=== PATIENT | female | born 2000 | race Caucasian/White ===

== ENCOUNTER → 2018-05-06 15:44 | Outpatient (CLI) | payer OTHER, SELFPAY ==
[2018-05-06 16:23] LABS: Basophils % 0.3 % (0.1-2.0); Eosinophils % 0.4 % (0.1-12.0); Hematocrit 42.8 % (37.0-47.0); Hemoglobin 14.4 g/dL (12.2-16.2); Lymphocytes # 1.3 K/mm3 (0.7-4.5); Lymphocytes % 15.1 K/mm3 (10-50); Mean Corpuscular HGB Conc 33.7 g/dL (31.8-35.4); Mean Corpuscular Hemoglobin 30.7 pg (27.0-31.2); Mean Corpuscular Volume 90.9 fl (81-99); Mean Platelet Volume 7.4 fl (7.4-10.4); Monocytes # 0.3 K/mm3 (0.1-1.0); Monocytes % 3.9 % (1.7-9.3); Neutrophils # 6.8 K/mm3 (1.8-7.8); Neutrophils % 80.3 % (37.0-80.0); Platelet Count 275 K/mm3 (142-424); Red Blood Count 4.71 M/mm3 (4.20-5.40); Red Cell Distribution Width 12.8 % (11.5-17.5); White Blood Count 8.4 K/mm3 (4.5-13.0)
[2018-05-08 16:52] LABS: HIV Screen 4th Generation wRfx Non Reactive (Non Reactive); Rapid Plasma Reagin Ab Titer Non Reactive (NonRea<1:1)
[2018-05-08 16:53] LABS: Hepatitis B Surface Antigen Negative (Negative); Hepatitis C Antibody <0.1 s/co ratio (0.0-0.9); Rubella Antibodies, IgG 1.59 index (Immune >0.99)
[2018-05-09 08:35] LABS: Neisseria gonorrhoeae, NAA Negative (Negative)
== END ==
PROVIDERS: Family Provider Family Medicine; PCP Nurse Practitioner Pediatrics; Visit Provider Nurse Practitioner Obstetrics & Gynecology
DX: Z34.90 Encounter for supervision of normal pregnancy, unspecified, unspecified trimester (principal)
CPT/HCPCS: 36415; 85025; 86592; 86703; 86762; 86850; 87340; 87380; 87491; 87591; G0432

== ENCOUNTER → 2018-06-25 15:06 | Outpatient (CLI) | payer OTHER, SELFPAY ==
[2018-06-29 01:07] LABS: AFP Value 70.9 ng/mL (.); DIA MoM 0.89 (.); DIA Value 191.43 pg/mL (.); DSR (Second Trimester) 1 IN 10000 (.); Gest. Age on Collection Date 16.4 WEEKS (.); Maternal Age At EDD 20.2 yr (.); OSBR Risk 1 IN 2270 (.); Results Report (.); hCG MoM 1.08 (.); uE3 MoM 1.33 (.); uE3 Value 1.28 ng/mL (.)
[2018-07-01 11:13] LABS: Gestat. Age Based On EDD (.)
== END ==
PROVIDERS: Visit Provider Nurse Practitioner Obstetrics & Gynecology
DX: Z34.90 Encounter for supervision of normal pregnancy, unspecified, unspecified trimester (principal)
CPT/HCPCS: 36415; 82106

== ENCOUNTER → 2018-08-02 12:46 | Outpatient (CLI) | payer OTHER, SELFPAY ==
--- NOTE | 2018-08-02 12:47 | US_ITS ---
US OB /maternal detail: INDICATION: ITS.REASON: US OB Complete ORDERING PHYSICIAN: Chris Blanc MD PATIENT AGE: 17 years TECHNIQUE: ultrasound transabdominal scanning. COMPARISON: No previous relevant studies. FINDINGS: Single viable intrauterine gestation. Cephalic position. Placenta: Anterior placenta grade 1. There is average amount fluid. The cervix appears satisfactory. Closed and measuring 2.9 cm in length. Complete survey performed and was unremarkable on the submitted images as in PACS. No discrete anomalies identified on survey imaging by technologist. Active fetus. Three-vessel cord with satisfactory umbilical cord insertion. 4- chamber heart noted. Survey of brain & ventricles unremarkable. Face and neck survey unremarkable. Diaphragm and chest views unremarkable. Abdomen: Both kidneys noted and unremarkable. Stomach noted and satisfactory. Spine: Survey of the spine satisfactory with no anomalies identified nor imaged. Both arms and legs noted. Amniotic Fluid: Adequate. Maternal adnexa: No significant findings. Measurements: Average ultrasound age 21w6d. Gestational Age 21w6d. Estimated due date by ultrasound age 0412/07/2018. Estimated weight 445 grams. BPD = 21w6d OFD = 22w3d HC = 21w4d AC = 21w6d FL = 21w5d Growth Percentile= 36% Heart Rate = 152 Cerebellum = 22w2d Humerus = 23w0d HC/AC is 1.14 (1.06-1.25). CI is 75% (70-86%). FL/BPD is 71%. FL/AC is 22% (20-24%). IMPRESSION: There is a single live fetus present which is in cephalic presentation with an average ultrasound age of 21 weeks and 6 days. heart and body motion noted. All parameters correlate. No obvious anomalies. Placenta is anterior and grade 1. Please see above for detailed description
== END ==
PROVIDERS: PCP Nurse Practitioner Pediatrics; Visit Provider Nurse Practitioner Obstetrics & Gynecology
DX: Z36.0 Encounter for antenatal screening for chromosomal anomalies (principal)
CPT/HCPCS: 76811

== ENCOUNTER 2018-08-09 03:31 | Observation (INO) ==
[2018-08-09 03:45] LABS: Basophils % 0.3 % (0.1-2.0); Eosinophils # 0.1 K/mm3 (0.0-0.4); Hematocrit 36.5 % (37.0-47.0); Hemoglobin 12.3 g/dL (12.2-16.2); Lymphocytes # 2.2 K/mm3 (0.7-4.5); Mean Corpuscular HGB Conc 33.7 g/dL (31.8-35.4); Mean Corpuscular Hemoglobin 31.4 pg (27.0-31.2); Mean Corpuscular Volume 93.3 fl (81-99); Mean Platelet Volume 8.1 fl (7.4-10.4); Monocytes # 0.4 K/mm3 (0.1-1.0); Monocytes % 5.1 % (1.7-9.3); Neutrophils # 5.2 K/mm3 (1.8-7.8); Neutrophils % 65.7 % (37.0-80.0); Platelet Count 231 K/mm3 (142-424); Red Blood Count 3.91 M/mm3 (4.20-5.40); White Blood Count 7.8 K/mm3 (4.5-13.0)
--- NOTE | 2018-08-09 03:50 | Emergency Department Note ---
ED Disposition Clinical Impression: Atypical chest pain, Dyspnea, , Elevated d-dimer Disposition: Admitted as Observation Condition on Discharge: Good - Critical Care Critical Care Time: No Attestation: On , the high probability of a clinically significant, sudden or life threatening deterioration of the following system(s) required my full and direct attention, intervention and personal management. The time I documented below is in addition to time spent performing reported procedures but includes the following listed in this critical care notation. Medical Decision Making - S[place]er[place] Inquiry Pt receiving controlled substance: No Vital Signs: 08/09/18 03:31 Temperature 98.6 F Temperature Source Oral Pulse Rate [Right] 110 H Respiratory Rate 20 Blood Pressure [Right Arm] 119/80 Blood Pressure Mean [Right Arm] 93 02 Sat by Pulse Oximetry 99 - Lab Data Lab results reviewed: Yes: I reviewed the patient's lab results. Lab Results 08/09/18 03:37: WBC 7.8, RBC 3.91 L, Hgb 12.3, Hct 36.5 L, MCV 93.3, MCH 31.4 H, MCHC 33.7, RDW 14.0, Plt Count 231, MPV 8.1, Neut % (Auto) 65.7, Lymph % (Auto) 28.0, [place] % (Auto) 5.1, Eos % (Auto) 1.0, Baso % (Auto) 0.3, Neut # (Auto) 5.2, Lymph # (Auto) 2.2, [place] # (Auto) 0.4, Eos # (Auto) 0.1, Baso # (Auto) 0.0 08/09/18 03:37: Troponin I < 0.02 08/09/18 03:37: Sodium 141, Potassium 3.8, Chloride 104, Carbon Dioxide 25, Anion Gap 15.8 H, BUN 6 L, Creatinine 0.54 L, Estimated Creat Clear 132, Estimated GFR 145, Est GFR ( Amer) 176, Glucose 87, Calcium 9.0 08/09/18 03:37: D-Dimer 1350 H* 08/09/18 03:37: PT 9.8, INR 0.95, APTT 23.3 L Result diagrams: 08/09/18 03:37 08/09/18 03:37 Orders (Tests/Meds): ED MEDICATIONS Generic Name Dose Route Start Last Admin Trade Name Freq PRN Reason Stop Dose Admin Sodium Chloride 10 ml 08/09/18 03:35 Saline Flush 10ml Syringe IV 09/08/18 03:34 NEEDED PRN Maintain IV Site Discontinued Medications Generic Name Dose Route Start Last Admin Trade Name Kiran PRN Reason Stop Dose Admin Aspirin 324 mg 08/09/18 03:58 08/09/18 03:59 Aspirin 81mg Chewable Tablet PO 08/09/18 03:59 Not Given ONCE ONE Enoxaparin Sodium 50 mg 08/09/18 04:38 08/09/18 04:41 Lovenox 60mg/0.6ml Syringe SQ 08/09/18 04:39 50 mg ONCE ONE Administration ORDERS Category Date Time Status 12-lead EKG Request [ECG Request by /Nse] Stat Y 08/09/18 03:35 Ordered - ECG Data Tracing #1 Normal Sinus Rhythm: Yes Additional Comments: Normal sinus rhythm major ST-T wave changes no major ischemic changes appreciated overall normal sinus rhythm normal EKG Medical Decision Narrative: I reviewed patient's history she says she had a lot of dyspnea tonight is left- sided chest pains and her confirmed this lasted a few minutes and she has been asymptomatic now her d-dimer is elevated. Dr. Toledo who was covering for Dr. Ac the patient's OB and he advised that we should go ahead and rule out a PE. She gives a history that when she receives IV contrast dye for CTs that she will season have a very severe area and she has had this several times and was told not to take that contrast IV dye again though she denies any hives or swelling with it but she refuses to take any IV CT contrast dye so this rules out CT PE study. Dr. Pruitt will agree that we can go ahead and give her a dose of Lovenox tonight and admit her to the hospital and see if we get a VQ scan set up for later this morning have talked to the x-ray tech and were going to see we get the dose of the VQ scan radionucleotide sent to the [facility] General Adult HPI - General Chief complaint: Chest Pain Stated complaint: chest pain Time Seen by Provider: 08/09/18 04:10 Mode of Arrival: Ambulatory Source of Information: Patient Limitations: No Limitations Description of Symptoms (Recalled from ER Triage Doc. by RN): Pt c/o left sided CP that radiates to her back with periods of shortness of breath when the pain hits, states it has woken her up in the middle of the night the past 3 nights with a sharp pain. Denies any other s/s. Pt is currently 23 weeks . - History of Present Illness HPI narrative: Patient is currently 5 months . Patient states for the last 3 days she has had some sharp intermittent left-sided chest pain does not describe any shortness of breath no cough tonight she had another episode that woke her up with some sharp pains in the left side of the chest she felt some short of breath but not severe denies any cough no pain with movement with the comfortable at present. Is a non-smoker no past cardiopulmonary history, she is Ab2 miscarriage less than a year ago. Feels comfortable at present and has no complaint Location: chest Radiation: non-radiation Quality: stabbing, sharp - Related Data Home Medications Medication Instructions Recorded Confirmed 1 tab PO DAILY 06/11/18 08/09/18 vitamin,calcium,qicnhofk-jfsx-thyvo acid tablet Previous Rx's Medication Instructions Recorded hydroxyzine pamoate 25 mg capsule 25 mg PO QID PRN #120 cap 06/11/18 Allergies Allergy/AdvReac Type Severity Reaction Status Date / Time Iodinated Contrast Media - Allergy Severe Seizure Verified 08/01/18 11:56 Oral and furosemide [From Lasix] Allergy Verified 08/01/18 11:56 [facility] History - Hepatitis A Screen Drug use history?: No High risk sexual behaviors?: No History of sexually transmitted infection?: No Currently employed?: No Childcare worker?: No Do you have indoor plumbing?: Yes Do you have electricity?: Yes Attestation statement:: This patient has been screened for Hepatitis A risk factors. I have reviewed the patient's past medical history: Yes Medical History: Denies:: Cancer, Diabetes Mellitus Type 1, Diabetes Mellitus Type 2, MRSA Amputation: No Fractures: No - Social History Smoking Status: Never smoker Alcohol Intake: never Substance Use Type: denies use - Psychiatric History Expresses thoughts of harming self/others: None Suicide Plan Description: No Plan Family Hx:: No significant family history Para: 1 ROS Obtained: Yes All systems reviewed & no additional complaints - Constitutional Constitutional: Reports system reviewed and no additional complaints, except as docu, Reports as per HPI, Denies night sweats - Eyes Eyes: Reports system reviewed and no additional complaints, except as docu - ENT Ears, Nose, Mouth, and Throat: Reports system reviewed and no additional complaints, except as docu - Cardiovascular Cardiovascular: Reports system reviewed and no additional complaints, except as docu, Reports as per HPI, Reports chest pain, Denies leg pain with activity, Denies diaphoresis, Denies dyspnea on exertion, Denies edema, Denies irregular heart rhythm, Denies leg edema, Denies lightheadedness, Denies shortness of breath when lying down, Reports shortness of breath causing sudden awakening, D enies radiating jaw, neck or arm pain, Denies rapid heart rate, Denies slow heart rate, Denies fainting - Respiratory Respiratory: Yes system reviewed and no additional complaints, except as docu, Yes as per HPI, No chest congestion, No cough, No non-productive cough, No dyspnea on exertion, No coughing up blood, No pain on inspiration, No pain with cough, No stridor, No wheezing - Gastrointestinal Gastrointestingal: Reports: system reviewed and no additional complaints, except as docu, as per HPI - Genitourinary Female Genitourinary: Reports system reviewed and no additional complaints, except as docu, Denies pelvic pain - Musculoskeletal Musculoskeletal: Reports system reviewed and no additional complaints, except as docu, Reports as per HPI - Integumentary/Breasts Skin/Breast: Reports system reviewed and no additional complaints, except as docu - Neurologic Neurologic: Reports system reviewed and no additional complaints, except as docu - Endocrine Endocrine: Reports system reviewed and no additional complaints, except as docu, Reports as per HPI - Hematologic/Lymphatic Henatologic/Lymphatic: Reports system reviewed and no additional complaints, except as docu, Reports as per HPI Physical Exam - General General appearance: alert, in no apparent distress - Head Head exam: atraumatic, normocephalic, normal inspection - Eye Eye exam: Present: normal appearance, PERRL, EOMI. Absent: scleral icterus, conjunctival redness, jaundice - ENT ENT exam: Present: normal exam, mucous membranes moist - Neck Neck exam: Present: normal inspection, full ROM. Absent: tenderness, meningismus, lymphadenopathy, thyromegaly - Chest Chest inspection: Present: normal inspection, symmetric chest wall rise. Absent: tenderness, rash - Respiratory Respiratory exam: Present: normal lung sounds bilaterally. Absent: respiratory distress - Cardiovascular Cardiovascular exam: Present: regular rate, normal rhythm, normal heart sounds - Abdominal Exam Abdominal exam: Present: soft, normal bowel sounds, other (Gravid appearance of the abdomen). Absent: distention, tenderness - Extremities Exam Extremities exam: Present: normal inspection, full ROM. Absent: tenderness, normal capillary refill, pedal edema, joint swelling, calf tenderness - Back Exam Back exam: Present: normal inspection, full ROM. Absent: tenderness - Neurological Exam Neurological exam: Present: alert, oriented X3, CN II-XII intact, normal gait. Absent: motor sensory deficit - Psychiatric Psychiatric exam: Present: normal affect, normal mood - Skin Skin exam: Present: warm, dry, intact, normal color. Absent: rash, cyanosis, di aphoresis - Lymphatic Lymphatic Findings: no adenopathy
[2018-08-09 03:56] LABS: Anion Gap 15.8 mEq/L (5-15); Potassium 3.8 mmoL/L (3.5-5.1)
[2018-08-09 04:04] LABS: Activated Partial Thrombo Time 23.3 seconds (23.6-34.0); INR 0.95 (0.9-1.1); Prothrombin Time 9.8 seconds (9.4-11.8)
--- NOTE | 2018-08-09 07:40 | Pharmacy Consult Notes ---
[facility] Pharmacy VTE Monitoring - Patient Demographics Admission date: 08/09/18 Report Date: 08/09/18 Time: 07:40 Allergies/Adverse Reactions: Patient Allergies Iodinated Contrast Media - Oral and Allergy (Severe, Verified 08/01/18 11:56) Seizure furosemide [From Lasix] Allergy (Verified 08/01/18 11:56) Height: 1.5 m Weight: 49.442 kg Patient Problems: Current Active Problems Atypical chest pain (Acute) Dyspnea (Acute) Elevated d-dimer (Acute) (Acute) - VTE Risk Labs: VTE Related Lab Results Hgb 12.3 g/dL (12.2-16.2) 08/09/18 03:37 Hct 36.5 % (37.0-47.0) L 08/09/18 03:37 Plt Count 231 K/mm3 (142-424) 08/09/18 03:37 PT 9.8 seconds (9.4-11.8) 08/09/18 03:37 INR 0.95 (0.9-1.1) 08/09/18 03:37 APTT 23.3 seconds (23.6-34.0) L 08/09/18 03:37 BUN 6 mg/dL (7-18) L 08/09/18 03:37 Creatinine 0.54 mg/dL (0.55-1.02) L 08/09/18 03:37 Estimated Creat Clear 132 mL/min (50-200) 08/09/18 03:37 Was VTE Risk Assessment Performed: No VTE Score: 2 VTE Risk Level: Low Risk - Prophylaxis VTE Prophylaxis Ordered?: Yes Types of VTE Prophylaxis: TEDS Knee High Location of Applied Device: Bilateral Lower Extremeties - VTE Diagnosis Confirmed Treatment or plan recommended: Continue Current Treatment
--- NOTE | 2018-08-09 08:06 | Progress Note ---
Internal Medicine - PN: Subj *Date: 08/09/18 *Time: 08:04 Interval history: This 17-year-old white female at 23 weeks of gestation presented to the emergency room last night with shortness of breath and chest pain. She has a history of anxiety, but states that the symptoms are on like those. She has been followed by Dr. Blanc for her OB care. heart tones in the ER were 153/min. The emergency room physician ordered D-dimers, which were significantly elevated, and the possibility of a pulmonary embolus was floated. The patient states that she has had a severe to CT dye, and so the patient was admitted for observation and scheduled for a VQ scan this morning. She is currently in radiology having an initial chest x-ray. Exam Vital signs and Labs for Last 24 Hours: Temp Pulse Resp BP Pulse Ox 98.3 F 101 H 17 101/46 L 99 08/09/18 06:24 08/09/18 06:53 08/09/18 06:24 08/09/18 06:24 08/09/18 06:53 Laboratory Results - last 24 hr 08/09/18 03:37: WBC 7.8, RBC 3.91 L, Hgb 12.3, Hct 36.5 L, MCV 93.3, MCH 31.4 H, MCHC 33.7, RDW 14.0, Plt Count 231, MPV 8.1, Neut % (Auto) 65.7, Lymph % (Auto) 28.0, [place] % (Auto) 5.1, Eos % (Auto) 1.0, Baso % (Auto) 0.3, Neut # (Auto) 5.2, Lymph # (Auto) 2.2, [place] # (Auto) 0.4, Eos # (Auto) 0.1, Baso # (Auto) 0.0 08/09/18 03:37: Troponin I < 0.02 08/09/18 03:37: Sodium 141, Potassium 3.8, Chloride 104, Carbon Dioxide 25, Anion Gap 15.8 H, BUN 6 L, Creatinine 0.54 L, Estimated Creat Clear 132, Estimated GFR 145, Est GFR ( Amer) 176, Glucose 87, Calcium 9.0 08/09/18 03:37: D-Dimer 1350 H* 08/09/18 03:37: PT 9.8, INR 0.95, APTT 23.3 L I & O for Last 24 hours: Intake & Output 08/06/18 08/07/18 08/08/18 08/09/18 11:59 11:59 11:59 11:59 Weight 109 lb
--- NOTE | 2018-08-09 13:33 | Progress Note ---
Internal Medicine - PN: Subj *Date: 08/09/18 *Time: 13:32 Interval history: The patient's chest x-ray and VQ scan of her lungs were completely normal, with no evidence of embolus. She is anxious, but otherwise feeling well. heart tones are 150 and normal. She will be discharged today. Exam Vital signs and Labs for Last 24 Hours: Temp Pulse Resp BP Pulse Ox 98.6 F 64 18 93/54 L 99 08/09/18 12:00 08/09/18 12:00 08/09/18 12:00 08/09/18 12:00 08/09/18 12:00 Laboratory Results - last 24 hr 08/09/18 03:37: WBC 7.8, RBC 3.91 L, Hgb 12.3, Hct 36.5 L, MCV 93.3, MCH 31.4 H, MCHC 33.7, RDW 14.0, Plt Count 231, MPV 8.1, Neut % (Auto) 65.7, Lymph % (Auto) 28.0, [place] % (Auto) 5.1, Eos % (Auto) 1.0, Baso % (Auto) 0.3, Neut # (Auto) 5.2, Lymph # (Auto) 2.2, [place] # (Auto) 0.4, Eos # (Auto) 0.1, Baso # (Auto) 0.0 08/09/18 03:37: Troponin I < 0.02 08/09/18 03:37: Sodium 141, Potassium 3.8, Chloride 104, Carbon Dioxide 25, Anion Gap 15.8 H, BUN 6 L, Creatinine 0.54 L, Estimated Creat Clear 132, Es timated GFR 145, Est GFR ( Amer) 176, Glucose 87, Calcium 9.0 08/09/18 03:37: D-Dimer 1350 H* 08/09/18 03:37: PT 9.8, INR 0.95, APTT 23.3 L I & O for Last 24 hours: Intake & Output 08/07/18 08/08/18 08/09/18 08/10/18 11:59 11:59 11:59 11:59 Intake Total 100 / 100 Balance 100 / 100 Weight 109 lb
--- NOTE | 2018-08-09 13:35 | Discharge Summary ---
General - General Admission date:: 08/09/18 Discharge date: 08/09/18 (This 17-year-old 4, para 1, Ab2 white female was admitted at 23 weeks of gestation to the emergency room because of shortness of breath and chest pain. She has a history of anxiety, but her D-dimers were significantly elevated, and the emergency room physician was concerned with regard to the possibility of a pulmonary embolus. Because of a significant allergy to radiologic dye, a CT scan was not done. She was admitted and observed, and this morning a chest x-ray was normal, followed by a completely normal VQ lung scan. She is reassured. Her heart tones are 150/min. She is discharged home to resume her antianxiety meds patient that she has been on, and to keep her scheduled appointment with Dr. Blanc or to return as needed.) Objective Vital signs: Temp Pulse Resp BP Pulse Ox 98.6 F 64 18 93/54 L 99 08/09/18 12:00 08/09/18 12:00 08/09/18 12:00 08/09/18 12:00 08/09/18 12:00 Results Labs on day of discharge: Labs from last 24 hours 08/09/18 08/09/18 08/09/18 03:37 03:37 03:37 WBC RBC Hgb Hct MCV MCH MCHC RDW Plt Count MPV Neut % (Auto) Lymph % (Auto) [place] % (Auto) Eos % (Auto) Baso % (Auto) Neut # (Auto) Lymph # (Auto) [place] # (Auto) Eos # (Auto) Baso # (Auto) PT 9.8 INR 0.95 APTT 23.3 L D-Dimer 1350 H* Sodium 141 Potassium 3.8 Chloride 104 Carbon Dioxide 25 Anion Gap 15.8 H BUN 6 L Creatinine 0.54 L Estimated Creat Clear 132 Estimated GFR 145 Est GFR ( Amer) 176 Glucose 87 Calcium 9.0 Troponin I 08/09/18 08/09/18 03:37 03:37 WBC 7.8 RBC 3.91 L Hgb 12.3 Hct 36.5 L MCV 93.3 MCH 31.4 H MCHC 33.7 RDW 14.0 Plt Count 231 MPV 8.1 Neut % (Auto) 65.7 Lymph % (Auto) 28.0 [place] % (Auto) 5.1 Eos % (Auto) 1.0 Baso % (Auto) 0.3 Neut # (Auto) 5.2 Lymph # (Auto) 2.2 [place] # (Auto) 0.4 Eos # (Auto) 0.1 Baso # (Auto) 0.0 PT INR APTT D-Dimer Sodium Potassium Chloride Carbon Dioxide Anion Gap BUN Creatinine Estimated Creat Clear Estimated GFR Est GFR ( Amer) Glucose Calcium Troponin I < 0.02 Discharge Plan - Patient Discharge Instructions - Follow up Plan Home Medications: Home Medications Medication Instructions Recorded Confirmed Type hydroxyzine pamoate 25 mg capsule 25 mg PO QID PRN #120 cap 06/11/18 08/09/18 Rx 1 tab PO DAILY 06/11/18 08/09/18 History vitamin,calcium,awjvqcyg-qews-wssjw acid tablet Prescriptions/Medication Reconciliation: No Action vitamin,calcium,lnigjkts-aqmj-xwspm acid tablet 1 tab PO DAILY hydroxyzine pamoate 25 mg capsule 25 mg PO QID PRN #120 cap PRN Reason: nausea and vomiting
== END 2018-08-09 14:12 | disposition home or self-care (01) ==
LOC: ER 03:31 → 2ND 03:31
PROVIDERS: ADMIT Obstetrics & Gynecology; ATTEND Nurse Practitioner Obstetrics & Gynecology
CPT/HCPCS: 71020; 71046; 78582; 80048; 84484; 85025; 85378; 85610; 85730; 93005; 96372; 99284; A9540; A9567; G0378

== ENCOUNTER → 2018-09-06 12:11 | Outpatient (CLI) | payer OTHER, SELFPAY ==
[2018-09-06 12:55] LABS: Basophils % 0.1 % (0.1-2.0); Eosinophils # 0.1 K/mm3 (0.0-0.4); Eosinophils % 0.7 % (0.1-12.0); Hematocrit 35.8 % (37.0-47.0); Hemoglobin 11.5 g/dL (12.2-16.2); Lymphocytes # 1.7 K/mm3 (0.7-4.5); Mean Corpuscular HGB Conc 32.2 g/dL (31.8-35.4); Mean Corpuscular Hemoglobin 30.6 pg (27.0-31.2); Mean Platelet Volume 8.1 fl (7.4-10.4); Monocytes # 0.3 K/mm3 (0.1-1.0); Monocytes % 3.5 % (1.7-9.3); Neutrophils # 6.4 K/mm3 (1.8-7.8); Neutrophils % 75.7 % (37.0-80.0); Platelet Count 231 K/mm3 (142-424); Red Blood Count 3.77 M/mm3 (4.20-5.40); Red Cell Distribution Width 13.3 % (11.5-17.5); White Blood Count 8.4 K/mm3 (4.5-13.0)
== END ==
PROVIDERS: PCP Nurse Practitioner Pediatrics; Visit Provider Nurse Practitioner Obstetrics & Gynecology
DX: Z34.90 Encounter for supervision of normal pregnancy, unspecified, unspecified trimester (principal)
CPT/HCPCS: 36415; 82239; 85025

== ENCOUNTER → 2018-09-13 07:47 | Outpatient (CLI) | payer OTHER, SELFPAY ==
[2018-09-13 08:54] LABS: Glucose,Fasting 85 mg/dL (60-105)
--- NOTE | 2018-09-13 09:24 | CA_ITS ---
CA echo doppler complete PROCEDURE: INDICATIONS FOR THE TEST: Chest pain X COPD Heart Murmur Tobacco Smoking Palpitations Fatigue Syncope Edema Hypertension Diabetes Mellitus Rheumatic Fever SOB ELIAS Obesity Hyperlipidemia Family History HD Additional History 27 WEEKS GESTATION PATIENT INFORMATION HEIGHT: 60 WEIGHT:111 GENDER: Female B/P:108/57 2-D/M-MODE INTERPRETATION: 2-D MEASUREMENTS OBSERVED VALUES IN CMS Right Ventricular Dimension (RVDd) 2.2 Interventricular Septum (Thickness)(IVsd) .6 Left Ventricular Internal Dimensions(LVIDd) 4.3 Left Ventricular Posterior Wall (Thickness)(LVPWd) .8 Aortic Root 2.8 Aortic Cusp Separation 1.9 Left Atrial Dimensions (LAD) 1.9 2D 1. Left atrium is normal size, left ventricle is normal size, there is no concentric left ventricular hypertrophy, visually estimated ejection fraction 55% with no regional wall motion abnormality. 2. The right atrium and right ventricle are normal size and contractility. 3. The aortic, mitral and tricuspid valve are grossly normal. 4. The pulmonic valve is minimally thickened and fibrosed. 5. No significant pericardial effusion noted. DOPPLER INTERROGATION: Doppler interrogation of the aortic, mitral and tricuspid valvular presence of trace mitral and tricuspid regurgitation of no hemodynamic significance, diastolic parameters are within normal range. CONCLUSION: 1. Normal left ventricular size, preserved left ventricular systolic function, visually estimated ejection fraction 55% with no regional wall motion abnormality, diastolic parameters are within normal range. 2. Trace mitral and tricuspid regurgitation 3. No significant pericardial effusion noted.
[2018-09-13 09:48] LABS: Glucose 1 Hour 103 mg/dL (74-106)
== END ==
PROVIDERS: Visit Provider Nurse Practitioner Obstetrics & Gynecology
DX: R07.9 Chest pain, unspecified (principal); Z34.90 Encounter for supervision of normal pregnancy, unspecified, unspecified trimester
CPT/HCPCS: 36415; 82951; 93306

== ENCOUNTER 2022-10-10 10:27 | Emergency (ER) | payer OTHER, SELFPAY ==
[2022-10-10 10:31] VITALS: BP 113/69; PULSE 99; RESP 15; TEMP 37.1; O2SAT 100; BMI 23.8
--- NOTE | 2022-10-10 10:39 | ECG_ITS ---
APPROVED REPORT Exam: Resting ECG HR:96 bpm ECG Measurements Heart Rate 96 AXES AL 130 P 64 QRSd 79 QRS 80 QT 328 T 64 QTc 382 Conclusion SINUS RHYTHM POSSIBLE RIGHT VENTRICULAR CONDUCTION DELAY [RSR (QR) IN V1/V2] MODERATE ST DEPRESSION [0.05+ mV ST DEPRESSION] ABNORMAL ECG UNCONFIRMED REPORT Electronically signed by : Luis Flanagan MD 10/10/2022 20:28:11
[2022-10-10 10:41] VITALS: BP 113/74; PULSE 94; RESP 16; O2SAT 100
--- NOTE | 2022-10-10 10:53 | PC.NURSE ---
Labs drawn, IV blew, aware and pt requesting to drink by mouth instead of trying another IV. is ok with this.
--- NOTE | 2022-10-10 10:53 | HMH.EDGENADL ---
Discharge Plan Disposition Patient Disposition: Home, Self-Care Condition: Good Prescriptions Prescriptions: No Action hydroxyzine pamoate [Vistaril] 25 mg capsule 25 mg PO QID PRN (Reason: nausea and vomiting) Qty: 60 2RF prenat.vits,myriam,xje-wkyi-dwuhi tablet 1 tab PO DAILY methylprednisolone [Medrol (Doe)] 4 mg tablets,dose pack See Rx Instructions PO PER PKG DIR Qty: 21 0RF Dose Instruction: PO PER PKG DIR Rx Instructions: PO PER PKG DIR famotidine 20 MG tablet 20 mg PO DAILY Referrals Follow up/Referrals: Provider,Referral, MD [Primary Care Provider] - See instructions Activity Restrictions/Add. Instructions Additional Instructions/Restrictions: Drink plenty fluids. Avoid abrupt changes in posture. Return for worrisome symptoms such as chest pain or shortness of air Clinical Impressions Clinical Impression: Syncope, vasovagal Instructions Patient Instructions: DI for Syncope in Adults (Fainting), DI for Syncope in Children (Fainting) Discharge ED Provider: Jacob Cronin General Adult HPI General Chief complaint: Syncope Stated complaint: syncope Time Seen by Provider: 10/10/22 10:30 Mode of Arrival: EMS Source of Information: Patient Limitations: No Limitations Description of Symptoms (Recalled from ER Triage Doc. by RN): Syncopal episode while job interviewing at [employer] [employer] today, 19w 3d G3, no complaints at this time, NAD History of Present Illness HPI narrative: Patient is 21 weeks gestational age and presents with a syncopal episode. She states she was at a job interview and stood up abruptly became lightheaded and subsequently passed out on the order of a few seconds. She states that this time she feels tired.. She denies headache chest pain shortness of air or abdominal discomfort. She denies recent intercurrent illness such as fever vomiting diarrhea cough or urinary tract symptoms. Symptoms are described as moderate and worse with standing up Related Data Home Medications Medication Instructions Recorded Confirmed prenat.vits,myriam,[id number]-[id number] 1 tab PO DAILY Supplement 06/11/18 09/13/18 famotidine 20 mg tablet 20 mg PO DAILY GERD 09/10/18 09/13/18 Previous Rx's Medication Instructions Recorded hydroxyzine pamoate 25 mg capsule 25 mg PO QID PRN nausea and 09/06/18 (Vistaril) vomiting #60 caps methylprednisolone 4 mg tablets in See Rx Instructions PO PER PKG DIR 09/13/18 a dose pack (Medrol (Doe)) #21 tabs Allergies Allergy/AdvReac Type Severity Reaction Status Date / Time Iodinated Contrast Media Allergy Severe Seizure Verified 09/13/18 11:01 [Iodinated Contrast Media - Oral and] furosemide [From Lasix] Allergy Verified 09/13/18 11:01 [facility] Disclaimer: The information contained in this section may have been updated after the patient was seen, as this information can be updated by other users. Social History Smoking Status: Never smoker alcohol intake: never substance use type: denies use current occupational status: unemployed Travel in the last 8 weeks: Inside the [place] household members: significant other housing: house caffeine: Yes ROS Obtained: Yes All systems reviewed & no additional complaints except as documented Physical Exam General General appearance: alert and in no apparent distress Head Head exam: atraumatic, normocephalic and normal inspection Eye Eye exam: Present normal appearance, PERRL and EOMI ENT ENT exam: Present normal exam, normal oropharynx, mucous membranes moist, TM's normal bilaterally and normal external ear exam Neck Neck exam: Present normal inspection, full ROM and trachea midline; Absent meningismus or lymphadenopathy Chest Chest inspection: Present normal inspection and symmetric chest wall rise; Absent tenderness Respiratory Respiratory exam: Present normal lung sounds bilaterally; Absent respiratory distre
[2022-10-10 11:00] VITALS: BP 130/78; PULSE 97; RESP 16; O2SAT 100
[2022-10-10 11:24] LABS: Basophils % 0.5 % (0.1-2.0); Eosinophils # 0.1 K/mm3 (0.0-0.4); Eosinophils % 1.1 % (0.1-12.0); Hematocrit 33.2 % (37.0-47.0); Hemoglobin 11.4 g/dL (12.2-16.2); Lymphocytes # 1.3 K/mm3 (0.7-4.5); Lymphocytes % 17.6 % (10-50); Mean Corpuscular HGB Conc 34.4 g/dL (31.8-35.4); Mean Corpuscular Hemoglobin 32.1 pg (27.0-31.2); Mean Corpuscular Volume 93.3 fl (81-99); Mean Platelet Volume 8.7 fl (7.4-10.4); Monocytes # 0.3 K/mm3 (0.1-1.0); Monocytes % 4.7 % (1.7-9.3); Neutrophils # 5.4 K/mm3 (1.8-7.8); Neutrophils % 76.1 % (37.0-80.0); Platelet Count 241 K/mm3 (142-424); Red Blood Count 3.56 M/mm3 (4.20-5.40); Red Cell Distribution Width 13.7 % (11.5-17.5); White Blood Count 7.2 K/mm3 (4.8-10.8)
[2022-10-10 11:25] LABS: Chloride 109 mmol/L (98-107); Potassium 3.9 mmoL/L (3.5-5.1); Sodium 136 mmol/L (136-145)
[2022-10-10 11:28] LABS: Blood Urea Nitrogen 7 mg/dl (7-17); Creatinine Clearance Estimated 147 mL/min (50-200); Estimated Glomerular Filt Rate 152 ml/min (>60); GFR (African American) 183 ML/MIN (>60)
[2022-10-10 11:29] LABS: Anion Gap 7.9 mEq/L (5-15); Calcium 8.4 mg/dl (8.4-10.2); Carbon Dioxide 23 mmol/L (22.0-30.0); Glucose 98 mg/dl (74-100)
[2022-10-10 11:30] VITALS: BP 100/62; PULSE 99; RESP 20; O2SAT 100
[2022-10-10 12:11] VITALS: BP 116/69; PULSE 83; RESP 16; TEMP 36.7; O2SAT 98
== END 2022-10-10 12:11 | disposition home or self-care (01) ==
PROVIDERS: Emergency Provider Emergency Medicine
DX: R55 Syncope and collapse (principal)
CPT/HCPCS: 80048; 85025; 93005; 96360; 99285